=== PATIENT | male | born 1975 | race Caucasian/White ===

== ENCOUNTER 2017-10-03 08:01 | Emergency (ER) | payer OTHER ==
[~2017-10-03] VITALS: Ht 180.3 cm; Wt 113.4 kg
[~2017-10-03 08:01] MED LIST: BACTRIM DS TAB1 EACH PO; CLEOCIN HCL300 MG PO; CLINDAMYCIN HC150 MG PO; GENTAMICIN SU3 MG/ML OP; IBUPROFEN 800800 MG PO; NO HOME MEDS; NORCO 5-325 TA1 EACH PO; PERCOCET 5-3251 EACH PO; PHENERGAN 25 MG25 M1 PO
[2017-10-03 08:25] LABS: ABSOLUTE NEUTROPHILS 5.1 thou/uL (1.4-8.2); BASOPHILS 0.8 % (0.0-2.0); EOSINOPHILS 2.6 % (0.0-3.0); HEMATOCRIT 45.1 % (42.0-52.0); HEMOGLOBIN 15.7 gm/dL (14.0-18.0); LYMPHOCYTES 23.8 % (24.0-44.0); MCH 30.8 pg (26.0-34.0); MCHC 34.9 g/dL (28.0-37.0); MCV 88.3 fL (80.0-100.0); MONOCYTES 6.5 % (1.0-8.0); PLATELET COUNT 246 thou/uL (150-400); POLYS 66.3 % (36.0-66.0); RBC 5.11 mil/uL (4.50-6.00); RDW 13.5 % (10.5-14.5); WBC 7.7 thou/uL (4.0-11.0)
[2017-10-03 08:32] LABS: CALCIUM 8.8 mg/dL (8.5-10.1); CREATININE 1.4 mg/dL (0.7-1.3); POTASSIUM 3.6 mmol/L (3.5-5.1)
[2017-10-03 08:38] LABS: TOTAL BILIRUBIN 0.6 mg/dL (<0.1-1.0); TOTAL PROTEIN 6.9 g/dL (6.4-8.2)
[2017-10-03 09:36] LABS: URINE BILIRUBIN NEGATIVE (Negative); URINE BLOOD 3+ (Negative); URINE CLARITY CLEAR; URINE COLOR YELLOW; URINE GLUCOSE-RANDOM* NEGATIVE (Negative); URINE KETONES NEGATIVE (Negative); URINE LEUKOCYTES-REFLEX NEGATIVE (Negative); URINE NITRITE-REFLEX NEGATIVE (Negative); URINE PROTEIN (DIPSTICK) NEGATIVE (Negative); URINE SPECIFIC GRAVITY 1.025 (1.005-1.035)
[2017-10-03 09:46] LABS: URINE RBC 3-10 Few /HPF (0-2)
[2017-10-03 09:47] LABS: BACTERIA-REFLEX 1-9 Few /HPF (None Seen); CASTS None Seen /LPF (None Seen); CRYSTALS None Seen /LPF (None Seen); SQUAMOUS None Seen /LPF (0-3); URINE WBC-REFLEX None Seen /HPF (0-5)
[2017-10-03] MEDS ORDERED: FLOMAX0.4 MG PO (10:08)
[2017-10-03] MEDS ORDERED: SENNA-DOCUSATE1 EACH PO (10:08)
[2017-10-03] MEDS ORDERED: NORCO 7.5-3251 EACH PO (10:08)
[2017-10-03] MEDS ORDERED: IBUPROFEN 600600 M1 PO (10:08)
[2017-10-03] MEDS ORDERED: ZOFRAN ODT4 MG PO (10:08)
[2017-10-03 10:23] VITALS: BP 128/88
== END 2017-10-03 10:23 | disposition home or self-care (01) ==
LOC: ER 08:01
PROVIDERS: Emergency Medicine
DX: N20.0 Calculus of kidney (principal); F17.210 Nicotine dependence, cigarettes, uncomplicated